=== PATIENT | male | born 1960 | race Hispanic/Latino ===

== ENCOUNTER 2021-09-12 20:17 | Emergency (ER) | payer OTHER ==
[~2021-09-12] VITALS: Ht 190.5 cm; Wt 100.0 kg
[2021-09-12] MEDS ORDERED: MORPHINE 4 MG/ML 1ML VIAL/SYRINGE IV PRN (20:40)
[2021-09-12] MEDS ORDERED: BOOSTRIX/ADACEL VACCINE (DIPHTH/PERTUSS/ACELL/TETANUS) 0.5ML SYR IM.IMMUN ONE (20:45)
[2021-09-12] MEDS ORDERED: ISOVUE-370 76% 100ML VIAL As Ordered ONE (20:55)
[2021-09-12 21:04] LABS: BASO % 0.2 % (0.0-1.0); EOS % 0.3 % (0.0-3.0); HEMATOCRIT 41.7 % (42.0-52.0); HEMOGLOBIN 14.1 g/dl (13.5-17.5); LYMPH # 1.2 10^3/uL (1.5-5.0); LYMPH % 9.8 % (24.0-44.0); MEAN CORPUSCULAR HEMOGLOBIN 30.7 pg (27.0-33.0); MEAN CORPUSCULAR HGB CONC 33.8 g/dl (32.0-36.5); MEAN CORPUSCULAR VOLUME 90.8 fl (80.0-96.0); MONO # 0.8 10^3/uL (0.0-0.8); MONO % 6.5 % (2.0-8.0); NEUTROPHILS # 10.3 10^3/uL (1.5-8.5); NEUTROPHILS % 82.7 % (36.0-66.0); PLATELET COUNT, AUTOMATED 283 10^3/uL (150-450); RED BLOOD COUNT 4.59 10^6/uL (4.30-6.10); WHITE BLOOD COUNT 12.5 10^3/uL (4.0-10.0)
[2021-09-12 21:42] LABS: ALBUMIN 3.6 GM/DL (3.2-5.2); ALT/SGPT 35 U/L (12-78); BILIRUBIN,DIRECT < 0.1 MG/DL (0.0-0.2); BILIRUBIN,TOTAL 0.3 MG/DL (0.2-1.0); BLOOD UREA NITROGEN 21 MG/DL (7-18); CARBON DIOXIDE LEVEL 25 MEQ/L (21-32); CHLORIDE LEVEL 108 MEQ/L (98-107); ETHYL ALCOHOL (ETHANOL) < 0.003 % (0.000-0.010); GLUCOSE, FASTING 112 MG/DL (70-100); POTASSIUM SERUM 4.3 MEQ/L (3.5-5.1); SODIUM LEVEL 142 MEQ/L (136-145); TOTAL PROTEIN 7.5 GM/DL (6.4-8.2)
[2021-09-12 21:44] LABS: CK-MB VALUE MASS 7.1 NG/ML (<3.6); MB/CK RELATIVE INDEX 1.38 (< OR =4)
[2021-09-13] MEDS ORDERED: UNRESOLVED CLARIFICATION ENTRY XX SCH (00:01)
[2021-09-13] MEDS ORDERED: IBUPROFEN 600MG TAB PO ONE (00:20)
[2021-09-13] MEDS ORDERED: LIDOCAINE 1% MDV 20ML VIAL SC ONE (00:20)
[2021-09-13 00:32] VITALS: BP 128/78
== END 2021-09-13 01:38 | disposition home or self-care (01) ==
LOC: M ED 20:17
DX: S81.811A Laceration without foreign body, right lower leg, initial encounter (principal); S60.221A Contusion of right hand, initial encounter; V43.52XA Car driver injured in collision with other type car in traffic accident, initial encounter
CPT/HCPCS: 12002; 70450; 71260; 72125; 72128; 72131; 73130; 73502; 73590; 74177; 80047; 80048; 80076; 82077; 82550; 82553; 84484; 85025; 93041; 94760; 99285; Q9967